=== PATIENT | female | born 1990 | race Caucasian/White ===

== ENCOUNTER 2021-07-28 23:00 | Emergency (ER) | payer OTHER ==
--- NOTE | 2021-07-29 00:32 | EDM.PDOC ---
ED HPI GENERAL MEDICAL PROBLEM - General Chief Complaint: ENT Problem Stated Complaint: Nosebleed Time Seen by Provider: 07/28/21 23:05 Source of Information: Reports: Patient - History of Present Illness INITIAL COMMENTS - FREE TEXT/NARRATIVE: 30-year-old lady at 29 weeks gestation came to the emergency department to have Rhino Rocket's removed from her nose bilaterally. She states that she had a severe nosebleed this morning and was originally seen by OB at [facility] in [place], [place] this morning. She then came to the emergency department here in [place] to have Rhino Rocket's placed to achieve hemostasis. However, over the last several hours she has felt significant pain, pressure, discomfort due to the Rhino Rocket's and came to the emergency department to see if we could change, just, remove the Rhino Rocket's to help her be more comfortable. She has not had fever, chills, chest pain, shortness of breath, change in bowel or bladder habits. She states that she can feel something draining down the back of her throat but she cannot taste blood. Nasal Pressure Pain Score (Numeric/FACES): 5 - Related Data Allergies Allergy/AdvReac Type Severity Reaction Status Date / Time No Known Allergies Allergy Verified 07/28/21 23:34 Home Meds: Home Meds Pnv No.95/Ferrous Fum/Folic AC [ Caplet] 1 tab PO DAILY 07/28/21 [History] Past Medical History BAKER DOUGHNUT History: Reports: Other BAKER DOUGHNUT History: - Past Surgical History GI Surgical History: Reports: Appendectomy Social & Family History - Family History Family Medical History: No Pertinent Family History - Tobacco Use Tobacco Use Status *Q: Never Tobacco User Second Hand Smoke Exposure: No - Caffeine Use Caffeine Use: Reports: Coffee - Recreational Drug Use Recreational Drug Use: No ED ROS ENT - Review of Systems Review Of Systems: See Below Constitutional: Reports: No Symptoms HEENT: Reports: Nose Pain, Rhinitis, Other (Epistaxis) Respiratory: Reports: No Symptoms Cardiovascular: Reports: No Symptoms Endocrine: Reports: No Symptoms GI/Abdominal: Reports: No Symptoms : Reports: No Symptoms Musculoskeletal: Reports: No Symptoms Skin: Reports: No Symptoms Neurological: Reports: No Symptoms Psychiatric: Reports: No Symptoms Hematologic/Lymphatic: Reports: No Symptoms Immunologic: Reports: No Symptoms ED EXAM, ENT - Physical Exam Exam: See Below Exam Limited By: No Limitations General Appearance: Alert, Anxious, Mild Distress (Well I mean) Eye Exam: Bilateral Eye: EOMI Nose: Other (Initial presentation was with Rhino Rocket's partially inserted bilaterally with some discharge mostly rhinorrhea, no obvious acute bleeding. After removal there was a few blood clots removed from the right nare however no acute bleeding otherwise mild erythema.) Head: Atraumatic, Normocephalic Respiratory/Chest: No Respiratory Distress, Lungs Clear Cardiovascular: Regular Rate, Rhythm GI/Abdominal: Normal Bowel Sounds Extremities: Normal Inspection Neurological: Alert, Oriented, CN II-XII Intact, Normal Cognition, Normal Gait Psychiatric: Anxious Skin: Warm, Dry Course - Vital Signs Text/Narrative:: Patient was evaluated by OB this morning in [place]. I reviewed labs and platelet count was within normal limits. Patient did have a mild increase in white blood cell count. I spoke with OB via 1 call and discussed the patient's labs and they explained that there is mild increase in white blood cell count is likely due to the marginalization. I also believe that her elevated blood pressure is at least in part due to stress, the lateness of the hour, and the pain/uncomfortableness caused by the nosebleed and the Rhino Rocket. Patient will return tomorrow for a blood pressure check. Last Recorded V/S: Last Vital Signs Temp 36.9 C 07/28/21 23:35 Pulse 90 07/28/21 23:35 Resp 18 07/29/21 00:30 BP 140/108 H 07/29/21 00:30 Pulse Ox 96 07/28/21 23:35 Departure - Departure Time of Disposition: 00:27 Disposition: Home, Self-Care 01 Condition: Good Clinical Impression: Epistaxis - Discharge Information *PRESCRIPTION DRUG MONITORING PROGRAM REVIEWED*: Not Applicable *COPY OF PRESCRIPTION DRUG MONITORING REPORT IN PATIENT KLEBER: Not Applicable Instructions: Nosebleed, Adult Referrals: PCP,None [Primary Care Provider] - Forms: ED Department Discharge Additional Instructions: Try your best not to blow or mechanically agitate your nose. As we discussed it may be helpful to use some Vaseline to coat the inside of the nasal tissues and keep them moist and protected. Please do not hesitate to return if you have a nosebleed again. Patient will return tomorrow for a blood pressure check. Note that OB suggested that if her blood pressure remains high tomorrow that we have the patient contact OB for further evaluation and consideration. Sepsis Event Note (ED) - Evaluation Sepsis Screening Result: No Definite Risk - Focused Exam Vital Signs: Vital Signs Temp Pulse Resp BP Pulse Ox 07/29/21 00:30 18 140/108 H 07/28/21 23:35 36.9 C 90 16 143/105 H 96
== END 2021-07-29 00:37 | disposition home or self-care (01) ==
LOC: FB.ED 23:00
DX: O99.891 Other specified diseases and conditions complicating pregnancy (principal); R04.0 Epistaxis; Z3A.29 29 weeks gestation of pregnancy
CPT/HCPCS: 99283